=== PATIENT | male | born 1995 | race Caucasian/White ===

== ENCOUNTER 2019-03-27 03:01 | Emergency (ER) | payer SELFPAY ==
--- NOTE | 2019-03-27 03:22 | NUR ---
CAME TO WAITING ROOM AND CALLED PT'S NAME, REGISTRATION STAFF STATE THAT THE PT'S MOTHER CAME INTO THE ED AND THE PT LEFT WITH HIS MOTHER, AMBULATORY.
== END 2019-03-27 03:22 | disposition left against medical advice (07) ==
LOC: EDUNIT# 03:01 → ER 03:04
DX: S01.81XA Laceration without foreign body of other part of head, initial encounter (principal); X58.XXXA Exposure to other specified factors, initial encounter